=== PATIENT | female | born 2005 | race Caucasian/White ===

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

== ENCOUNTER 2024-10-23 20:55 | Emergency (ER) | payer BC, MEDICAID, SELFPAY ==
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
[2024-10-23 21:02] VITALS: BP 139/79; PULSE 110; RESP 16; TEMP 36.5; O2SAT 98; BMI 19.3
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
--- NOTE | 2024-10-23 21:03 | ECG_ITS ---
[facility] Test Date: 2024-10-23 Pat Name: Elsy Huerta Department: Room: Gender: Female University Controller: : 2005 Requested By: Adithya Ayers Order Number: [id number] Shauna MD: CONNIE LOPEZ Measurements Intervals [place] Rate: 98 P: 60 [place]: 139 QRS: 64 QRSD: 82 T: 89 QT: 294 QTc: 376 Interpretive Statements SINUS RHYTHM POSSIBLE LEFT ATRIAL ENLARGEMENT [-0.1mV P-WAVE IN V1/V2] POSSIBLE RIGHT VENTRICULAR CONDUCTION DELAY [RSR (QR) IN V1/V2] NONSPECIFIC ST & T-WAVE ABNORMALITY No previous ECG available for comparison Electronically Signed On 10-25-2024 21:01:18 CDT by CONNIE LOPEZ [email or web address]
[2024-10-23] MEDS: iohexol 350 mg/mL 500 mL Btl (per mL) IV (21:23)
[2024-10-23 21:42] LABS: HCG, Serum Qual Negative (Negative)
[2024-10-23 22:52] VITALS: BP 113/65; PULSE 107; RESP 17; O2SAT 99
== END 2024-10-23 22:52 | disposition home or self-care (01) ==
PROVIDERS: Emergency Provider Nurse Practitioner Family; PCP Nurse Practitioner Family
DX: S22.31XA Fracture of one rib, right side, initial encounter for closed fracture (principal); V89.2XXA Person injured in unspecified motor-vehicle accident, traffic, initial encounter
CPT/HCPCS: 36415; 70450; 71260; 72125; 74177; 84703; 93005; 99285; 99291

== ENCOUNTER → 2025-02-03 18:32 | Outpatient (BNVA) | payer BC, MEDICAID, SELFPAY | PROVIDERS: PCP Nurse Practitioner Family; Visit Provider Nurse Practitioner | DX: J02.9 Acute pharyngitis, unspecified (principal) | CPT/HCPCS: 87880 ==

== ENCOUNTER 2025-04-21 08:31 | Emergency (ER) | payer BC, MEDICAID, SELFPAY ==
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
--- OUTSIDE RECORDS SUMMARY | 2025-04-21 08:41 | XMS_ITS | Encounter Summary ---
Author Organization [facility] Address 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
[2025-04-21 09:08] VITALS: BP 137/83; PULSE 71; RESP 18; TEMP 36.7; O2SAT 99
[2025-04-21 09:52] LABS: Glucose Urine UA Negative (Normal); Nitrate Urine Negative (Negative); Specific Gravity, Urine 1.023 (1.005-1.030)
[2025-04-21 09:52] LABS: Hematocrit 38.1 % (36-47); Hemoglobin 12.60 g/dL (12.4-14.8); Mean Corpuscular HGB Conc 33.1 g/dL (30-55); Mean Corpuscular Hemoglobin 31.7 pg (27-33); Mean Corpuscular Volume 96.0 fl (85-98); Nucleated Red Blood Cells % 0 %; Platelet Count 173 10^3/cmm (157-399); Red Blood Count 3.97 10^6/uL (3.85-5.65); White Blood Count 6.20 10^3/uL (4.5-13.0)
[2025-04-21 09:57] LABS: Add Urine Microscopic? YES
--- NOTE | 2025-04-21 09:58 | W.ED.PREGNAN ---
HPI - General: Chief complaint: Vaginal Bleeding Stated complaint: 10 Weeks Preg Spoting Time Seen by Provider: 04/21/25 09:21 History of Present Illness: 19-year-old female at 10 weeks gestation complaining of intermittent vaginal bleeding beginning overnight. No abdominal pain or pelvic cramping. No dysuria urgency or frequency. Associated symptoms: Deny abdominal pain, dysuria or vaginal discharge Related Data Home Medications ?Medication ?Instructions ?Recorded ?Confirmed levothyroxine 75 mcg tablet 75 mcg PO QAM 04/21/25 04/21/25 vitamins with calcium 1 tab PO QAM 04/21/25 04/21/25 no.72-iron 27 mg-folic acid 1 mg tablet ( Vitamins Plus Low Iron) Allergies Allergy/AdvReac Type Severity Reaction Status Date / Time No Known Allergies Allergy Unverified 02/03/25 18:18 Review of Systems Const: Denies: fever(s) or chills Card: Denies: chest pain Resp: Denies: dyspnea GI: Denies: abdominal pain : Reports: vaginal bleeding; Denies: dysuria, urinary frequency, urinary urgency or vaginal discharge Musc: Denies: neck pain or back pain Skin/Breast: Denies: rash PFSH ED PFSH: Social History Smoking and tobacco/nicotine status: unknown if used tobacco/nicotine Physical Exam Const: GENERAL APPEARANCE: cooperative ORIENTATION/CONSCIOUSNESS: Yes awake, Yes oriented to person, Yes oriented to place and Yes oriented to time HENMT: COMMON NORMALS: normocephalic, atraumatic and hearing grossly normal bilaterally HEAD & SCALP: normocephalic and atraumatic Resp: COMMON NORMALS: normal respiratory effort, No retractions, No use of accessory muscles and clear to auscultation bilaterally AUSCULTATION: clear to auscultation bilaterally Cardio: COMMON NORMALS: regular rate, regular rhythm and No murmurs present (Cardio) RATE: regular rate RHYTHM: regular rhythm GI: COMMON NORMALS: Soft to palpation and No hepatosplenomegaly present AUSCULTATION: Yes normoactive bowel sounds PALPATION: Yes Soft to palpation, No Tenderness to palpation present (GI), No Guarding due to palpation present (GI) and Yes No hepatosplenomegaly present Extremity: COMMON NORMALS: normal to inspection, capillary refill normal, no clubbing, cyanosis or edema, no calf tenderness and no pedal edema Neuro: SENSORIUM/ORIENTATION: Yes oriented to person, Yes oriented to place and Yes oriented to time Skin: COMMON NORMALS: no rashes or lesions noted GENERAL SKIN EXAM: no rashes or lesions noted Course Vital Signs: Vital signs: Vital Signs Temperature 98.1 F 04/21/25 09:08 Pulse Rate 82 04/21/25 11:53 Respiratory Rate 18 04/21/25 09:08 Blood Pressure 137/83 04/21/25 09:08 Pulse Oximetry 99 04/21/25 11:53 Oxygen Delivery Me thod Room Air 04/21/25 09:08 MDM - OB/Uterine Contractions Medical Decision Making Labs and imaging reviewed as in the chart no leukocytosis. Patient does have a mild cystitis. Ultrasound shows a single intrauterine at 8 weeks 2 days gestation EDC 11/29/2025 normal heart tones. No sign of subchorionic hemorrhage at this time. I do suspect patient may have a very small subchorionic hemorrhage likely too small to be seen on this ultrasound. May be result of her cystitis. Her cystitis symptoms are rare minimal however. 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 Return if she has worsening bleeding. Medical Records I reviewed the patient's medical records. Lab Data I reviewed the patient's lab results. 04/21/25 09:25 04/21/25 09:25 Radiology Impressions Obstetrics Ultrasound 04/21/25 10:52 IMPRESSION: 1. Single intrauterine gestation of 8w2d with an EDC of 11/29/2025. 2. Normal heart rate. Laboratory Results WBC 6.20 10^3/uL (4.5-13.0) 04/21/25 09:25 RBC 3.97 10^6/uL (3.85-5.65) 04/21/25 09:25 Hgb 12.60 g/dL (12.4-14.8) 04/21/25 09:25 Hct 38.1 % (36-47) 04/21/25 09:25 MCV 96.0 fl (85-98) 04/21/25 09:25 MCH 31.7 pg (27-33) 04/21/25 09:25 MCHC 33.1 g/dL (30-55) 04/21/25 09: RDW 12.2 % (12.1-15.1) 04/21/25 09: Plt Count 173 10^3/cmm (157-399) 04/21/25 09: MPV 11.7 fL (7.4-10.4) H 04/21/25 09:25 Neut % (Auto) 75.0 % 04/21/25 09: Lymph % (Auto) 16.0 % 04/21/25 09: [place] % (Auto) 8.2 % 04/21/25 09:25 Eos % (Auto) 0.3 % 04/21/25 09: Baso % (Auto) 0.2 % 04/21/25: Neut # (Auto) 4.65 10^3/uL (1.8-8.0) 04/21/25 09: Lymph # (Auto) 1.0 10^3/uL (1.5-6.5) L 04/21/25: [place] # (Auto) 0.5 10^3/uL (0.2-0.9) 04/21/25 09:25 Eos # (Auto) 0.0 10^3/uL (0.0-0.8) 04/21/25 09:25 Baso # (Auto) 0.0 10^3/uL (0.0-0.1) 04/21/25 09:25 Nucleated RBC % (auto) 0 % 04/21/25 09: Nucleated RBCs # 0.0 /100WBC 04/21/25 09:25 Sodium 135 mmol/L (136-145) L 04/21/25 09:25 Potassium 4.0 mmol/L (3.5-5.1) 04/21/25 09:25 Chloride 100 mmol/L (98-107) 04/21/25 09:25 Carbon Dioxide 21 mmol/L (22-29) L 04/21/25 09:25 Anion Gap 18.0 (5-19) 04/21/25 09:25 BUN 6 mg/dL (6-20) 04/21/25 09:25 Creatinine 0.4 mg/dL (0.5-0.9) L 04/21/25 09:25 GFR Calculation 203.5 mL/min (90-130) H 04/21/25 09:25 Glucose 82 mg/dL (65-115) 04/21/25 09:25 Calculated Osmolality 277 mOsm/kg (285-295) L 04/21/25 09:25 Calcium 9.5 mg/dL (8.5-10.5) 04/21/25 09:25 Total Bilirubin 0.3 mg/dL (0.15-1.2) 04/21/25: AST 13 U/L (0-32) 04/21/25:25 ALT 10 U/L (0-33) 04/21/25 09:25 Alkaline Phosphatase 67 U/L (35-105) 04/21/25 09: Total Protein 6.9 g/dL (6.6-8.7) 04/21/25 09: Albumin 4.6 g/dL (3.5-5.2) 04/21/25 09: Globulin 2.3 g/dL (1.3-4.6) 04/21/25 09:25 Ser , Semi-Qnt 581841.00 mIU/mL 04/21/25 09:25 Urine Color Dark yellow (Yellow) A 04/21/25 08:32 Urine Appearance Clear (CLEAR) 04/21/25 08:32 Urine pH 6.0 (5-7) 04/21/25 08:32 Ur Specific [place] 1.023 (1.005-1.030) 04/21/25 08:32 Urine Protein Negative (Negative) 04/21/25 08:32 Urine Glucose (UA) Negative (Normal) 04/21/25 08:32 Urine Ketones Negative (Negative) 04/21/25 08:32 Urine Blood Negative (Negative) 04/21/25 08:32 Urine Nitrate Negative (Negative) 04/21/25 08:32 Urine Bilirubin 1+ (Negative) H 04/21/25 08:32 Urine Urobilinogen 1.0 mg/dL (Negative) 04/21/25 08:32 Ur Leukocyte Esterase 1+ (Negative) A 04/21/25 08:32 Urine RBC 0-2 /hpf (0-2) 04/21/25 08:32 Urine WBC 11-20 /hpf (0-5) H 04/21/25 08:32 Ur Squamous Epith Cells 0-5 /hpf (0-5) 04/21/25 08:32 Amorphous Sediment Not Reportable 04/21/25 08:32 Urine Bacteria 1+ /hpf (NONE) H 04/21/25 08:32 Hyaline Casts 0.40 /lpf 04/21/25 08:32 Blood Type A Positive 04/21/25 09:25 Rho(D) Type Rh positive 04/21/25 09:25 All radiology interpretation(s) finalized by discharge Discharge Plan Discharge Patient Disposition: Home Clinical Impression: Vaginal bleeding, First trimester , Cystitis Condition: Stable Prescriptions: No Action levothyroxine 75 mcg tablet 75 mcg PO QAM Vitamin Plus Low Iron 27 mg iron- 1 mg tablet 1 tab PO QAM Discharge Orders: Discharge ED (Routine); Ordered 04/21/25 Ordered By: Fidencio Rizo Referrals: Geoffrey Crooks FNP [Primary Care Provider, Family Practice] Discharge Diet: Usual diet Discharge Activity: Resume usual activity Patient Instructions: Opioid Safety, Pain Management, Patient Portal & Magdy Instructions Activity Restrictions/Additional Instructions: Thank you for choosing [facility] for your healthcare needs today. It is very important that you follow up as instructed or that you return to the Emergency Department should you have concerns or if your condition changes or worsens in any way. Emergency department visits are focused on emergent conditions, in some cases you may require further evaluation on an outpatient basis. You were seen in the emergency room with a complaint of vaginal bleeding during your first trimester of the . Your beta hCG was in the expected range for your reported estimated gestational age. Your ultrasound showed a normal intrauterine with estimated gestational age of 8 weeks. Suspect you may have a very small subchorionic hemorrhage, too small to even be seen on the ultrasound. You did have a mild bladder infection for which we will give you oral antibiotics. (Please note that included in your discharge packet is information concerning opioid safety and pain management. This information is given to all patients were discharged from the ER regardless of their discharge diagnosis or the medicines they usually take or are prescribed.) Print Language: Sri Lankan Coding Level of Care Code ED Supervisor Liquid Yeast for oTney Hagan
[2025-04-21 10:22] LABS: Alanine Aminotransferase 10 U/L (0-33); Albumin Level 4.6 g/dL (3.5-5.2); Alkaline Phosphatase 67 U/L (35-105); Anion Gap 18.0 (5-19); Aspartate Amino Transferase 13 U/L (0-32); Blood Urea Nitrogen 6 mg/dL (6-20); Calcium 9.5 mg/dL (8.5-10.5); Carbon Dioxide 21 mmol/L (22-29); Chloride 100 mmol/L (98-107); Globulin 2.3 g/dL (1.3-4.6); Glucose 82 mg/dL (65-115); Osmolality Calculated 277 mOsm/kg (285-295); Potassium 4.0 mmol/L (3.5-5.1); Sodium 135 mmol/L (136-145); Total Protein 6.9 g/dL (6.6-8.7)
--- NOTE | 2025-04-21 10:52 | US_ITS ---
WS: [id number] EARLY OBSTETRICAL ULTRASOUND (<14 WEEKS). HISTORY: spotting/ EGA 10 wks COMPARISON: None available. Single intrauterine gestational sac is identified. Cardiac activity at 159 BPM. [place]-rump length measures 1.6 cm which corresponds to a gestation of 8w0d. Normal-appearing yolk sac and amnion demonstrated. No subchorionic hemorrhage. No free fluid. Neither ovary identified. Adnexa were not imaged. US/US OB lmt with transvaginal IMPRESSION: 1. Single intrauterine gestation of 8w2d with an EDC of 11/29/2025. 2. Normal heart rate.
[2025-04-21 11:53] VITALS: PULSE 82; O2SAT 99
== END 2025-04-21 11:54 | disposition home or self-care (01) ==
PROVIDERS: Emergency Provider Family Medicine; PCP Nurse Practitioner Family
DX: O20.9 Hemorrhage in early pregnancy, unspecified (principal); Z3A.10 10 weeks gestation of pregnancy; O23.11 Infections of bladder in pregnancy, first trimester
CPT/HCPCS: 36415; 76815; 76817; 80053; 81001; 84702; 85025; 86900; 99284

== ENCOUNTER → 2025-04-29 08:11 | Outpatient (BNVA) | payer BC, MEDICAID, SELFPAY | PROVIDERS: PCP Nurse Practitioner Family; Visit Provider Nurse Practitioner Women's Health | DX: Z34.01 Encounter for supervision of normal first pregnancy, first trimester (principal) | CPT/HCPCS: 84315; 87491; 87591; 87661 ==

== ENCOUNTER → 2025-05-09 10:41 | Outpatient (BNVA) | payer BC, MEDICAID, SELFPAY | PROVIDERS: PCP Nurse Practitioner Family; Visit Provider Nurse Practitioner Women's Health | DX: Z34.01 Encounter for supervision of normal first pregnancy, first trimester (principal); E03.9 Hypothyroidism, unspecified | CPT/HCPCS: 80307; 84315; 84439; 84443; 86592; 86762; 86803; 87086; 87340; 87806 ==

== ENCOUNTER → 2025-05-24 09:20 | Outpatient (BNVA) | payer BC, MEDICAID, SELFPAY | PROVIDERS: PCP Nurse Practitioner Family; Visit Provider Obstetrics & Gynecology | DX: Z34.01 Encounter for supervision of normal first pregnancy, first trimester (principal); Z11.3 Encounter for screening for infections with a predominantly sexual mode of transmission | CPT/HCPCS: 84315; 87491; 87591; 87661 ==

== ENCOUNTER → 2025-06-21 10:03 | Outpatient (BNVA) | payer BC, MEDICAID, SELFPAY | PROVIDERS: PCP Nurse Practitioner Family; Visit Provider Nurse Practitioner Women's Health | DX: Z34.02 Encounter for supervision of normal first pregnancy, second trimester (principal); Z3A.17 17 weeks gestation of pregnancy; E03.9 Hypothyroidism, unspecified; F41.9 Anxiety disorder, unspecified; F32.A Depression, unspecified | CPT/HCPCS: 82105; 84315; 84443 ==

== ENCOUNTER 2025-06-27 19:54 | Emergency (ER) | payer BC, MEDICAID, SELFPAY ==
[2025-06-27 19:58] VITALS: BP 126/84; PULSE 116; RESP 16; TEMP 36.8; O2SAT 98; BMI 21.2
--- OUTSIDE RECORDS SUMMARY | 2025-06-27 20:03 | XMS_ITS | Clinical Summary ---
Author Organization [employer] Address [address] [place] [address] Care Team Providers Care Forest Fire Warden Name Role Phone Jacinto Hines MD Primary Care Provider [phone] Allergies No known active allergies Medications VIT B COMP NO.9-YLZXI-Q-BIO TIN ORAL Take 10,000 mcg by mouth. [...] Encounters Date Type Department Care Team Description 06/07/2025 External Device Data STL ABSTRACTION Provider, Abstract 05/03/2025 External Device Data STL ABSTRACTION Provider, Abstract 04/27/2025 External Device Data STL ABSTRACTION Provider, Abstract 04/27/2025 External Device Data STL ABSTRACTION Provider, Abstract 04/19/2025 External Device Data STL ABSTRACTION Provider, Abstract 04/14/[address] [phone] Leena Morales FNP Medication Question 04/13/2025 9:00 AM CDT Office Visit [address] [place] [phone] Leena Morales FNP Encounter for supervision of [...] COVID-19 VACCINE - EMERGENCY USE AUTHORIZATION, MRNA, [id number](PF) 30 MCG/0.3 ML IM SUSP 07/17/2021,06/27/2021 (VARIVAX)(12 [...] on file 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 Gender Identity Not on file Sexual Orientation [...] POC Dark Yellow Pale to Dark Yellow [facility] CLARITY UA POC Clear Clear, Other [facility] GLUCOSE UA POC Negative Negative, Normal [facility] BILIRUBIN UA POC 1+(A) Negative [facility] KETONES UA POC Negative Negative [facility] SPECIFIC GRAVITY UA POC >=1.030 1.000 - 1.030 [facility] BLOOD UA POC Trace(A) Negative [facility] LINIC [facility] PH UA POC 6.0 5.0 - 8.0 [facility] PROTEIN UA POC 1+(A) Negative [facility] UROBILINOGEN UA POC 2.0(A) <2.0 mg/dL [facility] NITRITE UA POC Negative Negative [facility] LEUKOCYTE ESTERASE UA POC 3+(A) Negative [facility] KIT LOT NUMBER POC [id number] [facility] KIT EXP DATE POC 01/27/2026 [facility] Urine 04/13/2025 9:16 AM CDT Leena Abreuriott SCOUT LEASER POINT OF CARE TESTING Fi nal Result [facility] CLIA# [id number] [address] [place] [address] * (ABNORMAL) POC , URINE (04/13/2025 9:15 AM CDT) HCG QUAL URINE POC Positive( A) Negative, Indeterminate [facility] INTERNAL KIT QC POC Pass Pass [facility] KIT LOT NUMBER POC [id number] [facility] KIT EXP DATE POC 01/27/2026 [facility] Urine 04/13/2025 9:15 AM CDT Leena Abreuriott SCOUT LEASER POINT OF CARE TESTING Fi nal Result [facility] CLIA# [id number] [address] [place] [address] from Last 3 Months Insurance [place] [facility]LY [facility] MEDICAID Care Teams Forest Fire Warden Relationship Specialty Start Date End Date Jacinto Hines MD [address] [facility] [address] [place] [phone] PCP - General Family Practice 10/31/17
[2025-06-27 20:37] LABS: Glucose Urine UA Negative (Normal); Nitrate Urine Negative (Negative)
[2025-06-27 20:42] LABS: Hematocrit 43.2 % (36-47); Hemoglobin 14.10 g/dL (12.4-14.8); Mean Corpuscular HGB Conc 32.6 g/dL (30-55); Mean Corpuscular Hemoglobin 31.3 pg (27-33); Mean Corpuscular Volume 95.8 fl (85-98); Nucleated Red Blood Cells % 0 %; Platelet Count 171 10^3/cmm (157-399); Red Blood Count 4.51 10^6/uL (3.85-5.65); White Blood Count 9.74 10^3/uL (4.5-13.0)
[2025-06-27 20:42] LABS: Add Urine Microscopic? YES
[2025-06-27 20:48] LABS: Specific Gravity, Urine 1.034 (1.005-1.030)
[2025-06-27 21:02] LABS: Alanine Aminotransferase 15 U/L (0-33); Albumin Level 4.3 g/dL (3.5-5.2); Alkaline Phosphatase 100 U/L (35-105); Anion Gap 18.8 (5-19); Aspartate Amino Transferase 20 U/L (0-32); Blood Urea Nitrogen 9 mg/dL (6-20); Calcium 8.8 mg/dL (8.5-10.5); Carbon Dioxide 20 mmol/L (22-29); Chloride 101 mmol/L (98-107); Globulin 3.2 g/dL (1.3-4.6); Glucose 111 mg/dL (65-115); Lipase 19 U/L (13-60); Osmolality Calculated 281 mOsm/kg (285-295); Potassium 3.8 mmol/L (3.5-5.1); Sodium 136 mmol/L (136-145); Total Protein 7.5 g/dL (6.6-8.7)
[2025-06-27] MEDS: metoclopramide 5 mg/mL SDV 2 mL 10 MG IVP (21:21)
[2025-06-27] MEDS: dextrose 5%-sod chloride 0.9% 1,000 ML 999 ML IV (21:22)
[2025-06-27 21:27] VITALS: BP 119/82; PULSE 104; O2SAT 99
--- NOTE | 2025-06-27 21:37 | ED_ITS ---
HPI - General Adult 2 General: Chief complaint: Nausea/Vomiting/Diarrhea Stated complaint: 13 Weeks Preg\V Time Seen by Provider: 06/27/25 20:52 History of Present Illness: 19-year-old female with a history of hyp othyroidism, not currently taking her medications as advised by her SILK SCREEN CUTTER, Dr. Cat due to elevated thyroid levels, presents with a chief complaint of lower abdomen cramping, nausea and vomiting. Patient has not had a fever at home. She denies runny nose, sore throat, cough, chest pain or shortness of breath. No nausea or vomiting. No diarrhea. Patient denies dysuria, increased frequency or hematuria. She denies abnormal pelvic discharge or bleeding, no new pain with intercourse. She said she has always had some discomfort with intercourse but nothing more severe or new. She has been getting routine care, she is approximately 18 weeks . She has tested negative for all sexually transmitted infections. Patient has not taken any medications for nausea or vomiting throughout her . 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 Related Data Home Medications ?Medication ?Instructions ?Recorded ?Confirmed vitamins with calcium 1 tab PO QAM 04/21/25 1 08/22/24 no.72-iron 27 mg-folic acid 1 mg tablet ( Vitamins Plus Low Iron) venlafaxine 75 mg capsule,extended 75 mg PO DAILY 04/3006/21/25 release 24 hr (Effexor XR) Previous Rx's ?Medication ?Instructions ?Recorded sertraline 50 mg tablet 50 mg PO DAILY #30 tabs 04/01 07/24 levothyroxine 100 mcg tablet 100 mcg PO DAILY #30 tabs 06/22/25 (Synthroid) metoclopramide HCl 10 mg tablet 10 mg PO Q6H PRN nause a and 06/27/25 (Reglan) vomiting 5 days #20 tabs Allergies Allergy/AdvReac Type Severity Reaction Status Date / Time No Known Allergies Allergy Verified 06/27/25 20:03 PFS ED 2 PFSH: Medical History (Updated 06/27/25 @ 22:40 by Mimi Nobles MD) No pertinent past medical history neghx: htn, dm, dvt/pe PCP: Donny Hypothyroidism (acquired) Hx of anxiety disorder History of depression Surgical History History of repair of ACL Family History Grandmother Breast cancer paternal and maternal Stroke Grandfather Colon cancer Heart disease Hyperlipidemia Hypertension Prostate cancer paternal Stroke Father Diabetes Hypertension Mother Ovarian cancer Age 27 Thyroid disease Brother Thyroid disease Sister Thyroid disease Denies family history of Uterine cancer Social History Smoking and tobacco/nicotine status: former use of tobacco/nicotine Female Reproductive History: Date of last menstrual period: 02/06/25 Physical Exam 2 Narrative: EXAM NARRATIVE: Vital signs were reviewed. Patient is alert and oriented. Patient is breathing comfortably, no increased WOB or accessory muscle use. SpO2 is above 95% on RA. Patient has clear lungs b/l, no rhonchi, wheezing or crackles. No hypotension. +Mild tachycardia. Abdomen is soft, nondistended. There is only very mild tenderness in the LLQ, no rebound. Negative Marshall's sign. No pain w/palpation of McBurney's point. No pain w/percussion of either flank. BSUS shows movement and FH. Patient is moving all extremities, no deformity or gross injury. No lower extremity edema or asymmetry. Course 2 Vital Signs: Vital signs: Vital Signs Temperature 98.3 F 06/27/25 19:58 Pulse Rate 88 06/27/25 22:16 Respiratory Rate 16 06/27/25 19:58 Blood Pressure 107/59 06/27/25 22:16 Pulse Oximetry 99 06/27/25 22:16 Oxygen Delivery Me thod Room Air 06/27/25 22:16 MDM - General Adult Medical Decision Making 19yo F w/cc of abd cramping, n/v, exposure to URI and stomach flu. Differential diagnosis includes but is limited to, morning sickness, hyperemesis gravidarum, urinary tract infection, pyelonephritis, appendicitis, cholecystitis, pancreatitis, dehydration, ovarian pathology, gastroenteritis, other. On exam, patient is helically stable. She has a benign abdomen on my exam. Patient was evaluate CBC, CMP, lipase, UA, COVID and flu screen. She was treated with dextrose containing fluids and IV Reglan. Lab work demonstrates a normal white blood cell count. Patient is not anemic. Patient does not have any significant electrolyte abnormalities such as hypokalemia. She has a normal anion gap. She has normal kidney function. Liver function and lipase are within normal limits. UA is not consistent with infection and there is no bacteria. Patient is negative for flu, COVID and RSV. On reassessment, tachycardia has resolved, patient is no longer feeling nauseated and is feeling significantly improved. On reassessment of her abdomen, she continues to have a benign exam. Patient has struggled with nausea and vomiting throughout her which may be compounded by a viral gastroenteritis. Patient was counseled on supportive care at home, given return precautions and discharged in stable condition with recommendation for outpatient follow-up with primary care nurse or doctor. Lab Data 06/27/25 20:36 06/27/25 20:36 Laboratory Results WBC 9.74 10^3/uL (4.5-13.0) 06/27/25 20:36 RBC 4.51 10^6/uL (3.85-5.65) 06/27/25 20:36 Hgb 14.10 g/dL (12.4-14.8) 06/27/25 20:36 Hct 43.2 % (36-47) 06/27/25 20:36 MCV 95.8 fl (85-98) 06/27/25 20:36 MCH 31.3 pg (27-33) 06/27/25 20:36 MCHC 32.6 g/dL (30-55) 06/27/25 20:36 RDW 12.5 % (12.1-15.1) 06/27/25 20:36 Plt Count 171 10^3/cmm (157-399) 06/27/25 20:36 MPV 11.6 fL (7.4-10.4) H 06/27/25 20:36 Neut % (Auto) 90.9 % 06/27/25 20:36 Lymph % (Auto) 5.4 % 06/27/25 20:36 [place] % (Auto) 3.4 % 06/27/25 20:36 Eos % (Auto) 0.0 % 06/27/25 20:36 Baso % (Auto) 0.1 % 06/27/25 20:36 Neut # (Auto) 8.85 10^3/uL (1.8-8.0) H 06/27/25 20:36 Lymph # (Auto) 0.5 10^3/uL (1.5-6.5) L 06/27/25 20:36 [place] # (Auto) 0.3 10^3/uL (0.2-0.9) 06/27/25 20:36 Eos # (Auto) 0.0 10^3/uL (0.0-0.8) 06/27/25 20:36 Baso # (Auto) 0.0 10^3/uL (0.0-0.1) 06/27/25 20:36 Nucleated RBC % (auto) 0 % 06/27/25 20:36 Nucleated RBCs # 0.0 /100WBC 06/27/25 20:36 Sodium 136 mmol/L (136-145) 06/27/25 20:36 Potassium 3.8 mmol/L (3.5-5.1) 06/27/25 20:36 Chloride 101 mmol/L (98-107) 06/27/25 20:36 Carbon Dioxide 20 mmol/L (22-29) L 06/27/25 20:36 Anion Gap 18.8 (5-19) 06/27/25 20:36 BUN 9 mg/dL (6-20) 06/27/25 20:36 Creatinine 0.5 mg/dL (0.5-0.9) 06/27/25 20:36 GFR Calculation 157.3 mL/min (90-130) H 06/27/25 20:36 Glucose 111 mg/dL (65-115) 06/27/25 20:36 Calculated Osmolality 281 mOsm/kg (285-295) L 06/27/25 20:36 Calcium 8.8 mg/dL (8.5-10.5) 06/27/25 20:36 Total Bilirubin 0.5 mg/dL (0.15-1.2) 06/27/25 20:36 AST 20 U/L (0-32) 06/27/25 20:36 ALT 15 U/L (0-33) 06/27/25 20:36 Alkaline Phosphatase 100 U/L (35-105) 06/27/25 20:36 Total Protein 7.5 g/dL (6.6-8.7) 06/27/25 20:36 Albumin 4.3 g/dL (3.5-5.2) 06/27/25 20:36 Globulin 3.2 g/dL (1.3-4.6) 06/27/25 20:36 Lipase 19 U/L (13-60) 06/27/25 20:36 Urine Color Yellow (Yellow) 06/27/25 21:43 Urine Appearance Cloudy (CLEAR) A 06/27/25 21:43 Urine pH 5.5 (5-7) 06/27/25 21:43 Ur Specific [place] 1.036 (1.005-1.030) H 06/27/25 21:43 Urine Protein Trace (Negative) A 06/27/25 21:43 Urine Glucose (UA) 2+ (Normal) H 06/27/25 21:43 Urine Ketones 2+ (Negative) H 06/27/25 21:43 Urine Blood Negative (Negative) 06/27/25 21:43 Urine Nitrate Negative (Negative) 06/27/25 21:43 Urine Bilirubin Negative (Negative) 06/27/25 21:43 Urine Urobilinogen 1.0 mg/dL (Negative) 06/27/25 21:43 Ur Leukocyte Esterase Negative (Negative) 06/27/25 21:43 Urine RBC 0-2 /hpf (0-2) 06/27/25 21:43 Urine WBC 6-10 /hpf (0-5) 06/27/25 21:43 Ur Squamous Epith Cells 6-10 /hpf (0-5) 06/27/25 21:43 Amorphous Sediment Not Reportable 06/27/25 21:43 Urine Bacteria Trace /hpf (NONE) 06/27/25 21:43 Hyaline Casts 0.81 /lpf 06/27/25 21:43 Influenza A (PCR) Negative (Negative) 06/27/25 21:33 Influenza Type B (PCR) Negative (Negative) 06/27/25 21:33 RSV (PCR) Negative (Negative) 06/27/25 21:33 SARS-CoV-2 (PCR) Negative (Negative) 06/27/25 21:33 No radiology studies performed this visit Discharge Plan Discharge Patient Disposition: Home Clinical Impression: Nausea and vomiting during , Viral gastroenteritis Condition: Stable Prescriptions: New metoclopramide HCl [Reglan] 10 mg tablet 10 mg PO Q6H PRN (Reason: nausea and vomiting) 5 Days Qty: 20 0RF No Action venlafaxine [Effexor XR] 75 mg capsule,extended release 24hr 75 mg PO DAILY sertraline 50 mg tablet 50 mg PO DAILY Qty: 30 0RF Rx Instructions: take 1/2 tab x 7 days then increase to 1 tab levothyroxine [Synthroid] 100 mcg tablet 100 mcg PO DAILY Qty: 30 1RF Vitamin Plus Low Iron 27 mg iron- 1 mg tablet 1 tab PO QAM Discharge Orders: Discharge ED (Routine); Ordered 06/27/25 Ordered By: Mimi Nobles Patient Instructions: Opioid Safety, Pain Management, Patient Portal & [place] Instructions, Nausea and Vomiting in (ED), Gastroenteritis (ED) Activity Restrictions/Additional Instructions: For nausea and vomiting during , please take 25 mg of doxylamine in combination with 25 mg of vitamin B6. You may get both of these medications [id number]. Take them daily at bedtime. If this is not helping, you may use a dose of Reglan. You may take Tylenol for pain. Continue to hydrate with Pedialyte, low sugar Gatorade or broth. Continue to monitor your condition closely. If your condition worsens or additional concerns arise, please return to the emergency department for reassessment. Otherwise, please follow-up with your [employer] SCREEN C[employer]TER as routinely scheduled. See your primary care physician within the next week. Print Language: Tuvaluan Coding Level of Care Code ED Executive Chef Assistant for Toney Hagan
[2025-06-27 21:58] LABS: Glucose Urine UA 2+ (Normal); Nitrate Urine Negative (Negative)
[2025-06-27 22:02] LABS: Add Urine Microscopic? YES
[2025-06-27 22:07] LABS: Specific Gravity, Urine 1.036 (1.005-1.030)
[2025-06-27 22:16] VITALS: BP 107/59; PULSE 88; O2SAT 99
[2025-06-27 22:31] LABS: Respiratory Syncytial Virus Ce NEGATIVE (Negative); SARS-CoV-2 PCR NEGATIVE (Negative)
[2025-06-27 22:59] VITALS: BP 117/68; PULSE 82; O2SAT 93
== END 2025-06-27 23:06 | disposition home or self-care (01) ==
PROVIDERS: Emergency Provider Emergency Medicine
DX: O26.891 Other specified pregnancy related conditions, first trimester (principal); Z3A.13 13 weeks gestation of pregnancy; A08.4 Viral intestinal infection, unspecified; O21.9 Vomiting of pregnancy, unspecified; Z11.52 Encounter for screening for COVID-19; Z87.891 Personal history of nicotine dependence
CPT/HCPCS: 36415; 80053; 81001; 82010; 83690; 85025; 87637; 96374; 99284; J2765; J7042